=== PATIENT | female | born 1955 | race Caucasian/White ===

== ENCOUNTER 2018-11-16 12:05 | Emergency (ER) | payer MEDICARE, OTHER, MEDICAID | END 2018-11-16 18:41 | disposition home or self-care (01) | LOC: E/R 12:05 | DX: R30.0 Dysuria (principal); R05 Cough; I10 Essential (primary) hypertension; J45.909 Unspecified asthma, uncomplicated; E03.9 Hypothyroidism, unspecified | CPT/HCPCS: 99283 ==